=== PATIENT | female | born 1975 | race Two or more races ===

== ENCOUNTER 2020-05-23 14:42 | Inpatient (IN) | payer OTHER ==
--- NOTE | 2020-05-23 14:57 | PDOC ---
Rapid Medical Evaluation Time Seen by Provider: 05/23/20 14:52 Medical Evaluation: Allergies Allergy/AdvReac Type Severity Reaction Status Date / Time pollen extracts Allergy Verified 05/06/20 20:27 05/23/20 14:52 CC: left leg pain with heaviness, s/p fibroid sx 2 weeks ago, no sob, states left leg mild swelling Exam: tachy, - homans sign, leg slightly darker and larger than right. incision intact Plan: labs, duplex Discharge Disposition - Diagnosis Left leg pain - Referrals - Patient Instructions - Post Discharge Activity
--- OUTSIDE RECORDS SUMMARY | 2020-05-23 15:12 | XMS ---
:1975 Author Organization [facility] Support Name Relationship Address Phone UE, UNEMPLOYED Unavailable Unavailable Unavailable UE Unavailable Unavailable Unavailable [employer] Unavailable [address] [place] [address] CLEMENTE, THOR PARTNER [address] [place] [address] CLEMENTE, THOR Other [address] [place] [address] Re-disclosure Warning The records that you are about to access may contain information from federally- assisted alcohol or drug abuse programs. If such information is present, then the following federally mandated warning applies: This information has been disclosed to you from records protected by federal confidentiality rules (42 CFR part 2). The federal rules prohibit you from making any further disclosure of this information unless further disclosure is expressly permitted by the written consent of the person to whom it pertains or as otherwise permitted by 42 CFR part 2. A general authorization for the release of medical or other information is NOT sufficient for this purpose. The Federal rules restrict any use of the information to criminally investigate or prosecute any alcohol or drug abuse patient.The records that you are about to access may contain highly sensitive health information, the redisclosure of which is protected by Article 27-F of the [facility] Public Health law. If you continue you may haveaccess to information: Regarding HIV / AIDS; Provided by facilities licensed or operated by the [facility] Office of Mental Health; or Provided by the [facility] Office for People With Developmental Disabilities. If such information is present, then the following [facility] mandated warning applies: This information has been disclosed to you from confidential records which are protected by state law. State law prohibits you from making any further disclosure of this information without the specific written consent of the person to whom it pertains, or as otherwise permitted by law. Any unauthorized further disclosure in violation of state law may result in a fine or shelter sentence or both. A general authorization for the release of medical or other information is NOT sufficient authorization for further disclosure. Insurance Providers Payer name Policy type Policy ID Covered Covered constitution party's Policy P [place] / Coverage constitution party ID relationship to Romo Inf ormation type romo [facility] [id number] MEDICAID COMM PLAN Results ID Date Data Source [id number] 05/05/2020 09:02:00 AM EDT [facility] Name Value Range Interpretation Description Data Sup porting Code Source(s) Document(s ) SARS [facility] coronavirus 2 RNA This lab was ordered by [facility] and reported by [facility]. Procedure
--- NOTE | 2020-05-23 16:47 | PDOC ---
History of Present Illness - General Chief Complaint: Pain Stated Complaint: LT LEG PAIN Time Seen by Provider: 05/23/20 14:52 - History of Present Illness Initial Comments: 05/23/20 19:09 44yo F presents w/ 2days LLE swelling, pain, and hyperpigmentation s/p myomectomy 3wks ago. This started yesterday and encompasses the whole LLE. The point of maximal pain is the L inguinal region just medial to the ASIS. She states the pain is worse with movement but there is a baseline discomfort. She also states that it is swollen and darker than the Right leg. She denies any respiratory symptoms - no cough, SOB, lightheadedness, chest pain, or back pain. 05/23/20 20:27 Past History - Medical History Allergies/Adverse Reactions: Allergies Allergy/AdvReac Type Severity Reaction Status Date / Time pollen extracts Allergy Verified 05/23/20 14:59 Home Medications: Ambulatory Orders NK [No Known Home Medication] 05/23/20 Anemia: Yes COPD: No - Reproductive History Is Patient Now?: No - Psycho-Social/Smoking History Smoking History: Never smoked Review of Systems - Review of Systems Able to Perform ROS?: Yes Is the patient limited Sierra Leonean proficient: Yes Constitutional: No: Symptoms Reported, Chills, Diaphoresis, Fever HEENTM: No: Recent change in vision, Tinnitus Respiratory: No: Symptoms reported, Cough, Orthopnea, Shortness of Breath, SOB with Exertion, SOB at Rest, Productive cough, Hemoptysis Cardiac (ROS): No: Chest Pain, Lightheadedness, Palpitations ABD/GI: No: Constipated, Diarrhea, Nausea, Vomiting : No: Burning, Dysuria, Discharge, Frequency, Flank Pain, Hematuria, Incontinence, Pain, Lesions Musculoskeletal: Yes: Muscle Pain Integumentary: Yes: Other (darkening of the left leg) Neurological: No: Symptoms reported Endocrine: No: Symptoms Reported Hematologic/Lymphatic: No: Symptoms Reported All Other Systems: Reviewed and Negative *Physical Exam - Vital Signs Last Vital Signs Temp Pulse Resp BP Pulse Ox 100 H 18 95/64 100 05/23/20 14:57 05/23/20 14:57 05/23/20 14:57 05/23/20 14:57 - Physical Exam General Appearance: Yes: Nourished, Appropriately Dressed, Apparent Distress (reports pain in the LLE) HEENT: positive: EOMI, DEVEN, Normal ENT Inspection, Normal Voice Neck: positive: Supple. negative: Tender Respiratory/Chest: positive: Lungs Clear, Normal Breath Sounds. negative: Chest Tender, Respiratory Distress, Accessory Muscle Use, Labored Respiration, Rapid RR Cardiovascular: positive: Regular Rhythm, Tachycardia Gastrointestinal/Abdominal: positive: Normal Bowel Sounds, Flat, Soft, Other (well healing surgical scar. no erythema, drainage, or induration). negative: Tender Musculoskeletal: positive: Decreased Range of Motion (LLE is painful to move). negative: CVA Tenderness (R), CVA Tenderness (L) Extremity: positive: Normal Capillary Refill. negative: Normal Inspection (LLE is slightly darker and colder than RLE. Neither is cold, but the RLE is warmer.) Integumentary: positive: Normal Color (LLE is slightly hyperpigmented compared to the RLE), Dry, Warm. negative: Cyanotic, Mottled Neurologic: positive: Fully Oriented, Alert, Normal Response, Motor Strength 11/23 ED Treatment Course - LABORATORY CBC & Chemistry Diagram: 05/25/20 05:29 05/25/20 05:29 Discharge - Discharge Information Problems reviewed: Yes Clinical Impression/Diagnosis: Left leg pain DVT (deep venous thrombosis) Qualifiers: DVT location: lower extremity Affected thrombotic vein of extremity: femoral Chronicity: acute Laterality: left Qualified Code(s): I82.412 - Acute embolism and thrombosis of left femoral vein Condition: Fair - Admission Yes - Follow up/Referral - Patient Discharge Instructions - Post Discharge Activity
[2020-05-23 17:10] LABS: BASO % 0.6 % (0-2.0); EOS % 1.9 % (0-4.5); HEMATOCRIT 35.5 % (32.4-45.2); HEMOGLOBIN 11.3 GM/dL (10.7-15.3); LYMPH % 18.2 % (8-40); MCH 26.9 pg (25.7-33.7); MCHC 31.9 g/dl (32.0-36.0); MEAN CELL VOLUME 84.4 fl (80-96); MONO % 7.4 % (3.8-10.2); NEUT % 71.9 % (42.8-82.8); PLATELET COUNT 207 K/MM3 (134-434); RDW 15.3 % (11.6-15.6); WHITE BLOOD COUNT 9.4 K/mm3 (4.0-10.0)
[2020-05-23 17:18] LABS: INR 1.15 (0.83-1.09); PROTHROMBIN TIME (PATIENT) 13.8 SEC (9.7-13.0)
[2020-05-23 17:20] LABS: ACTIVATED PTT 30.4 SECONDS (25.2-36.5)
[2020-05-23 17:34] LABS: EPI CELLS 17 /uL (0-25.1); HYALINE CASTS 2 /uL (0-3.1); PH,URINE 5.5 (5.0-8.0); URINE APPEARANCE CLOUDY; URINE BACTERIA >9,000 /uL (0-1359); URINE BILIRUBIN NEGATIVE (NEGATIVE); URINE COLOR YELLOW; URINE GLUCOSE (UA) NEGATIVE (NEGATIVE); URINE KETONE NEGATIVE (NEGATIVE); URINE LEUK ESTERASE NEGATIVE (NEGATIVE); URINE NITRITE POSITIVE (NEGATIVE); URINE PROTEIN NEGATIVE (NEGATIVE); URINE RBC 7 /uL (0-23.9); URINE UROBILINOGEN 0.2 mg/dL (0.2-1.0); URINE WBC 24 /uL (0-25.8)
[2020-05-23 17:37] LABS: HCG,QUALITATIVE URINE Negative
[2020-05-23 17:37] LABS: CHLORIDE 102 mmol/L (98-107); SODIUM 129 mmol/L (136-145)
[2020-05-23 17:40] LABS: ALBUMIN 3.2 g/dl (3.4-5.0); CO2 26 mmol/L (21-32); GLUCOSE,RANDOM 75 mg/dL (74-106)
--- NOTE | 2020-05-23 17:43 | PDOC ---
Documentation entered by Mildred Lackey SCRIBE, acting as scribe for David Dinero MD. David Dinero MD: This documentation has been prepared by the kristaibeDarya Xhesika, SCRIBE, under my direction and personally reviewed by me in its entirety. I confirm that the documentation accurately reflects all work, treatment, procedures, and medical decision making performed by me. Attending Attestation - Resident Resident Name: John Navarrete - ED Attending Attestation I have performed the following: I have examined & evaluated the patient, The case was reviewed & discussed with the resident, I agree w/resident's findings & plan, Exceptions are as noted - HPI HPI: 05/23/20 15:38 44y/o M with a pmh of who presents to the ED for sudden onset left leg pain, swelling and heaviness since yesterday. Pt states she had a open abdominal myomectomy here at [facility] 3 weeks ago. She states she felt fine on saturday, woke up with pain in her L leg. Denies any cp, sob, cough, hemoptysis, urrutia. No prior family or personal history DVT/PE in the past. Allergies: Pollen Extracts PCP: Wen Erickson - Physicial Exam PE: 05/23/20 17:31 Physicial Exam: GENERAL: The patient is awake, alert, and fully oriented, Nontoxic - in no acute distress. HEAD: Normocephalic, atraumatic. EYES: extraocular movements intact, sclera anicteric, conjunctiva clear. ENT: Normal voice, Moist mucous membranes. NECK: Normal range of motion, supple LUNGS: Breath sounds equal, clear to auscultation bilaterally. No wheezes, no rhonchi, no rales. HEART: Regular rate and rhythm, normal S1 and S2 without murmur, rub or gallop. ABDOMEN: Soft, nontender, No guarding, no rebound. No CVA tenderness EXTREMITIES: Normal range of motion, significant edema of LLE to thigh NEUROLOGICAL: No facial assymetry, Normal speech, PSYCH: Normal mood, normal affect. SKIN: Warm, Dry, normal turgor, - Medical Decision Making 05/23/20 17:38 extensive DVT on LLE will start ac will dw vascular regarding disposition 05/23/20 19:38 pt admitted for further mangaement leg remains swollen without and coolness. pts pain is moderate, no paleness/hyeremia. dp pulses palpable Discharge - Discharge Information Problems reviewed: Yes Clinical Impression/Diagnosis: Left leg pain DVT (deep venous thrombosis) Qualifiers: DVT location: lower extremity Affected thrombotic vein of extremity: femoral Chronicity: acute Laterality: left Qualified Code(s): I82.412 - Acute embolism and thrombosis of left femoral vein Condition: Fair - Follow up/Referral - Patient Discharge Instructions - Post Discharge Activity
[2020-05-23 17:44] LABS: CREATININE 0.7 mg/dL (0.55-1.3); TOT PROT 8.8 g/dl (6.4-8.2)
[2020-05-23 17:45] LABS: ALK PHOS 65 U/L (45-117)
[2020-05-23 17:49] LABS: ANION GAP 1 MMOL/L (8-16); SGOT/AST 88 U/L (15-37); SGPT/ALT 20 U/L (13-61)
[2020-05-23 17:50] LABS: BILIRUBIN,TOTAL < 0.1 mg/dL (0.2-1)
[2020-05-23 17:51] LABS: POTASSIUM > 10.0 mmol/L (3.5-5.1)
[2020-05-23] MEDS ORDERED: RIVAROXABAN 15 MG TABLET PO ONE (18:05)
[2020-05-23] MEDS ORDERED: LACTATED RINGERS SOLUTION 1000 ML INFUS.BAG IV ONE (18:14)
[2020-05-23] MEDS ORDERED: ACETAMINOPHEN 1000 MG/100 ML VIAL (NON FORMULARY) IVPB ONE (18:26)
[2020-05-23] MEDS ORDERED: ACETAMINOPHEN INJECTION 100 ML IVPB ONE (18:31)
[2020-05-23 19:32] LABS: CHLORIDE 106 mmol/L (98-107)
[2020-05-23 19:34] LABS: CALCIUM 8.8 mg/dL (8.5-10.1)
[2020-05-23 19:35] LABS: ALBUMIN 3.6 g/dl (3.4-5.0); BLOOD UREA NITROGEN 11.8 mg/dL (7-18); CO2 26 mmol/L (21-32); GLUCOSE,RANDOM 80 mg/dL (74-106)
[2020-05-23 19:38] LABS: CREATININE 0.6 mg/dL (0.55-1.3); SGOT/AST 13 U/L (15-37); SGPT/ALT 14 U/L (13-61)
[2020-05-23 19:40] LABS: BILIRUBIN,TOTAL 0.5 mg/dL (0.2-1); TOT PROT 7.5 g/dl (6.4-8.2)
[2020-05-23 19:41] LABS: ALK PHOS 67 U/L (45-117)
--- OUTSIDE RECORDS SUMMARY | 2020-05-23 19:52 | XMS ---
:1975 Author Organization [facility] Support Name Relationship Address Phone UE, UNEMPLOYED Unavailable Unavailable Unavailable UE Unavailable Unavailable Unavailable [employer] Unavailable [address] [place] [address] CLEMENTE, THOR PARTNER [address] [place] [address] CLEMENTE, THOR Other [address] [place] [place] [address] Re-disclosure Warning The records that you are [...] is protected by Article 27-F of the [facility] Public Health law. If you continue you may haveaccess to information: Regarding HIV / AIDS; Provided by facilities licensed or operated by the [facility] Office of Mental Health; or Provided by the [facility] Office for People With Developmental Disabilities. If such information is present, then the following [facility] mandated warning applies: This information has been [...] law may result in a fine or senior care sentence or both. A general authorization for the release of medical or other information is NOT sufficient authorization for further disclosure. Insurance Providers Payer name Policy type Policy ID Covered Covered alliance party's Policy P [place] / Coverage alliance party ID relationship to [place] Inf ormation type navarro [facility] [id number] MEDICAID COMM PLAN Results ID Date Data Source [id number] 05/05/2020 09:02:00 AM EDT [facility] Name Value Range Interpretation Description Data Sup porting Code Source(s) Document(s ) SARS [facility] coronavirus 2 RNA This lab was ordered by [facility] and reported by [facility]. Procedure
[2020-05-23 19:59] LABS: ANION GAP 8 MMOL/L (8-16); SODIUM 140 mmol/L (136-145)
[2020-05-23] MEDS ORDERED: ATORVASTATIN CA 10 MG TABLET (FP) PO ONE (20:30)
[2020-05-23] MEDS ORDERED: morphine SULFATE IMMEDIATE RELEASE 30 MG TAB PO PRN (21:26)
[2020-05-23] MEDS ORDERED: HEPARIN NA (PORCINE) 5,000 UNITS/ML 1ML VIAL IVPUSH PRN ×2 (21:32)
[2020-05-23] MEDS ORDERED: ACETAMINOPHEN 325 MG TABLET (FP) PO SCH (21:45)
--- NOTE | 2020-05-23 21:54 | HP ---
<Drake Escalante - Last Filed: 05/24/20 05:55> CHIEF COMPLAINT: L leg pain and swelling PCP: Dr. Walton HISTORY OF PRESENT ILLNESS: Pt is a 44 yo F with PMH of fibroids (s/p open abdominal myomectomy on 05/09/2020) presenting with L leg pain with associated mild swelling, heaviness, and mild discoloration x 2 days (since Saturday morning). Pt reports the pain has been severe 10/10 at it's worst, dull, and constant pain. Pt reports she cannot recall anything that makes the pain worse. Pt had only minimal relief with Advil at home (decreased to 8-9/10). Pt reports that she has the most pain on L mid upper thigh (almost at the L inguinal area); pt reports mild erythema in this area earlier in the day but it is no longer present. Pt's left lower extremities is discolored but does not have significant blue/purple discoloration. Pt denies hx of clots in the past, current OCP use, periods of extended sitting/traveling (reports that she has been walking a lot since the surgery), hx of miscarriages/ loss, past DVT/PE, or fam hx of clots/easy bleeding. Pt denies any changes in sensation in her legs, numbness/tingling, changes in ability to move leg, CP, dyspnea at rest or on exertion, cough, hemoptysis, hematuria, dysuria, urinary frequency, or urgency. Pt also denies na usea/vomiting, constipation, diarrhea, dizziness/lightheadedness, or fevers/chills. 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 Smoking: denies Alcohol: denies Drugs: denies Allergies pollen extracts Allergy (Verified 05/23/20 14:59) HOME MEDICATIONS: Home Medications Medication Instructions Recorded NK [No Known Home Medication] 05/23/20 REVIEW OF SYSTEMS as per HPI PHYSICAL EXAMINATION Vital Signs - 24 hr 05/23/20 05/23/20 05/23/20 14:57 18:08 20:37 Temperature 98.2 F 98.8 F Pulse Rate 100 H Pulse Rate [ 80 81 Left Radial] Respiratory 18 18 18 Rate Blood Pressure 95/64 Blood Pressure 109/69 114/73 [Left Arm] O2 Sat by Pulse 100 98 100 Oximetry (%) GENERAL: Awake, alert, and fully oriented, in no acute distress. HEAD: Normal with no signs of trauma. EYES: Pupils equal, round and reactive to light, extraocular movements intact, sclera anicteric, conjunctiva clear. EARS, NOSE, THROAT: Ears normal, nares patent, oropharynx clear without exudates. Moist mucous membranes. NECK: Normal range of motion, supple without lymphadenopathy LUNGS: Breath sounds equal, clear to auscultation bilaterally. No wheezes, and no crackles. No accessory muscle use. HEART: Regular rate and rhythm, normal S1 and S2 without murmur, rub or gallop. ABDOMEN: Soft, nontender, not distended, normoactive bowel sounds; old vertical scar from C-sections; transverse scar over suprapubic area - surgical site from recent myomectomy is clean, dry and intact; no suprapubic tenderness MUSCULOSKELETAL: Normal range of motion at all joints. No bony deformities or tenderness. UPPER EXTREMITIES: 2+ pulses, warm, well-perfused. No cyanosis. No clubbing. No peripheral edema. LOWER EXTREMITIES: 2+ pulses, warm, well-perfused bilaterally at time of evaluation. LLE with increased edema up to thigh, mild discoloration as compared to RLE, pt with calf tenderness, Anita sign + NEUROLOGICAL: Cranial nerves II-XII intact. Normal speech. Sensation to light tough intact. Moving all extremities equally and spontaneously PSYCHIATRIC: Cooperative. Good eye contact. Appropriate mood and affect. SKIN: Warm, dry, normal turgor, no rashes or lesions noted, normal capillary refill. Laboratory Results - last 24 hr 05/23/20 05/23/20 05/23/20 15:22 15:22 15:22 WBC 9.4 RBC 4.20 Hgb 11.3 Hct 35.5 MCV 84.4 MCH 26.9 MCHC 31.9 L RDW 15.3 Plt Count 207 D MPV 10.0 Absolute Neuts (auto) 6.7 Neutrophils % 71.9 Lymphocytes % 18.2 Monocytes % 7.4 Eosinophils % 1.9 Basophils % 0.6 Nucleated RBC % 0 PT with INR 13.80 H INR 1.15 H PTT (Actin FS) 30.4 Sodium 129 L Potassium > 10.0 H* Chloride 102 Carbon Dioxide 26 Anion Gap 1 L BUN 13.0 Creatinine 0.7 Est GFR (CKD-EPI)AfAm 123.86 Est GFR (CKD-EPI)NonAf 106.87 Random Glucose 75 Calcium 9.0 Total Bilirubin < 0.1 L AST 88 H ALT 20 Alkaline Phosphatase 65 Troponin I Total Protein 8.8 H Albumin 3.2 L TSH Urine Color Urine Appearance Urine pH Ur Specific [place] Urine Protein Urine Glucose (UA) Urine Ketones Urine Blood Urine Nitrite Urine Bilirubin Urine Urobilinogen Ur Leukocyte Esterase Urine WBC (Auto) Urine RBC (Auto) Urine Casts (Auto) U Epithel Cells (Auto) Urine Bacteria (Auto) Urine HCG, Qual 05/23/20 05/23/20 15:36 17:55 WBC RBC Hgb Hct MCV MCH MCHC RDW Plt Count MPV Absolute Neuts (auto) Neutrophils % Lymphocytes % Monocytes % Eosinophils % Basophils % Nucleated RBC % PT with INR INR PTT (Actin FS) Sodium 140 Potassium 4.0 Chloride 106 Carbon Dioxide 26 Anion Gap 8 BUN 11.8 Creatinine 0.6 Est GFR (CKD-EPI)AfAm 130.30 Est GFR (CKD-EPI)NonAf 112.42 Random Glucose 80 Calcium 8.8 Total Bilirubin 0.5 AST 13 L ALT 14 Alkaline Phosphatase 67 Troponin I < 0.02 Total Protein 7.5 Albumin 3.6 TSH 0.89 Urine Color Yellow Urine Appearance Cloudy Urine pH 5.5 Ur Specific [place] 1.031 Urine Protein Negative Urine Glucose (UA) Negative Urine Ketones Negative Urine Blood 3+ H Urine Nitrite Positive H Urine Bilirubin Negative Urine Urobilinogen 0.2 Ur Leukocyte Esterase Negative Urine WBC (Auto) 24 Urine RBC (Auto) 7 Urine Casts (Auto) 2 U Epithel Cells (Auto) 17 Urine Bacteria (Auto) >9,000 Urine HCG, Qual Negative LLE US/Duplex Read: There is extensive deep venous thrombosis within the common, deep, and superficial femoral veins. No flow is identified within these vessels which are noncompressible, additional sign of DVT. This is also identified within the proximal greater saphenous vein. The more distal greater saphenous vein is patent. Non-inclusive thrombus is seen within the popliteal and posterior tibial veins where some flow is present. Impression: Extensive DVT within the LLE as described above. ASSESSMENT/PLAN: Pt is a 44 yo F with PMH of fibroids (s/p open abdominal myomectomy on 05/09/2020) presenting with L leg pain, swelling, heaviness, and mild discoloration x 2 days (since Saturday morning); found to have extensive deep venous thrombosis of LLE (common, deep, and superficial femoral veins). Pt being admitted for further evaluation and management of the extensive LLE DVT. #LLE DVT (common, deep, and superficial femoral veins) Duplex US of LLE as reported above Xarelto given in ED VS stable currently Will continue to monitor for any changes in VS; changes in LLE exam; development of CP/SOB -Case discussed with Vascular Surgery by ED d/t extensiveness of DVT; Vascular surgery consulted and will evaluate patient tomorrow; appreciate recs -will start heparin drip -PO tylenol scheduled; PO morphine prn for breakthrough pain -neurochecks for changes in LLE exam -PT consulted for early ambulation #Asymptomatic Bacteruria/Pyuria UA with LE neg, nitrites pos, WBC 24, bacteria >9000, 3+ blood, 17 epith Pt not endorsing any dysuria, frequency, or urgency LMP 05/20/2020 (recent period) -will repeat UA; f/u UCx -no need to treat right now; monitor for development of symptoms -can reassess after repeat UA #FEN -F - fluids given in ED -E - monitor lytes; replete prn -N - NPO for now #DVT Ppx -heparin drip #Dispo -admit to med-surg Family Medical History Family History: As Documented Visit type - Emergency Visit Emergency Visit: Yes ED Registration Date: 05/23/20 Care time: The patient presented to the Emergency Department on the above date and was hospitalized for further evaluation of their emergent condition. - New Patient This patient is new to me today: Yes Date on this admission: 05/24/20 - Critical Care Critical Care patient: No ATTENDING PHYSICIAN STATEMENT I saw and evaluated the patient. I reviewed the resident's note and discussed the case with the resident. I agree with the resident's findings and plan as documented. SUBJECTIVE: OBJECTIVE: ASSESSMENT AND PLAN: <Fco Daniel - Last Filed: 06/03/20 20:51> CHIEF COMPLAINT: PCP: HISTORY OF PRESENT ILLNESS: ER course was notable for: (1) (2) (3) Recent Travel: PAST MEDICAL HISTORY: PAST SURGICAL HISTORY: Social History: Smoking: Alcohol: Drugs: Allergies pollen extracts Allergy (Verified 05/23/20 14:59) HOME MEDICATIONS: Home Medications Medication Instructions Recorded Acetaminophen [Tylenol .Regular 650 mg PO Q6HPO tablet 05/26/20 Strength -] Apixaban [Eliquis -] 10 mg PO BID@0600,1800 #66 tablet 05/26/20 Docusate Sodium [Colace -] 100 mg PO BID PRN capsule 05/26/20 REVIEW OF SYSTEMS CONSTITUTIONAL: Absent: fever, chills, diaphoresis, generalized weakness, malaise, loss of appetite, weight change HEENT: Absent: rhinorrhea, nasal congestion, throat pain, throat swelling, difficulty swallowing, mouth swelling, ear pain, eye pain, visual changes CARDIOVASCULAR: Absent: chest pain, syncope, palpitations, irregular heart rate, lightheadedness, peripheral edema RESPIRATORY: Absent: cough, shortness of breath, dyspnea with exertion, orthopnea, wheezing, stridor, hemoptysis GASTROINTESTINAL: Absent: abdominal pain, abdominal distension, nausea, vomiting, diarrhea, constipation, melena, hematochezia GENITOURINARY: Absent: dysuria, frequency, urgency, hesitancy, hematuria, flank pain, genital pain MUSCULOSKELETAL: Absent: myalgia, arthralgia, joint swelling, back pain, neck pain SKIN: Absent: rash, itching, pallor HEMATOLOGIC/IMMUNOLOGIC: Absent: easy bleeding, easy bruising, lymphadenopathy, frequent infections ENDOCRINE: Absent: unexplained weight gain, unexplained weight loss, heat intolerance, cold intolerance NEUROLOGIC: Absent: headache, focal weakness or paresthesias, dizziness, unsteady gait, seizure, mental status changes, bladder or bowel incontinence PSYCHIATRIC: Absent: anxiety, depression, suicidal or homicidal ideation, hallucinations. PHYSICAL EXAMINATION GENERAL: Awake, alert, and fully oriented, in no acute distress. HEAD: Normal with no signs of trauma. EYES: Pupils equal, round and reactive to light, extraocular movements intact, sclera anicteric, conjunctiva clear. No lid lag. EARS, NOSE, THROAT: Ears normal, nares patent, oropharynx clear without exudates. Moist mucous membranes. NECK: Normal range of motion, supple without lymphadenopathy, JVD, or masses. LUNGS: Breath sounds equal, clear to auscultation bilaterally. No wheezes, and no crackles. No accessory muscle use. HEART: Regular rate and rhythm, normal S1 and S2 without murmur, rub or gallop. ABDOMEN: Soft, nontender, not distended, normoactive bowel sounds, no guarding, no rebound, no masses. No hepatomegaly or splenomegaly. MUSCULOSKELETAL: Normal range of motion at all joints. No bony deformities or tenderness. No CVA tenderness. UPPER EXTREMITIES: 2+ pulses, warm, well-perfused. No cyanosis. No clubbing. No peripheral edema. LOWER EXTREMITIES: 2+ pulses, warm, well-perfused. No calf tenderness. No peripheral edema. NEUROLOGICAL: Cranial nerves II-XII intact. Normal speech. Normal gait. PSYCHIATRIC: Cooperative. Good eye contact. Appropriate mood and affect. SKIN: Warm, dry, normal turgor, no rashes or lesions noted, normal capillary refill. ASSESSMENT/PLAN: ATTENDING PHYSICIAN STATEMENT I saw and evaluated the patient. I reviewed the resident's note and discussed the case with the resident. I agree with the resident's findings and plan as documented. SUBJECTIVE: OBJECTIVE: ASSESSMENT AND PLAN:
[2020-05-23] MEDS: ACETAMINOPHEN 325 MG TABLET (FP) PO SCH (23:12)
[2020-05-24] MEDS: HEPARIN - 25,000 UNIT in SODIUM CHLORIDE 495 ML IV SCH ×3 (00:02→23:23)
[2020-05-24 00:56] VITALS: BMI 31.2
[2020-05-24] MEDS: ACETAMINOPHEN 325 MG TABLET (FP) PO SCH ×4 (06:11→23:13)
[2020-05-24] MEDS: morphine SULFATE 4 MG/ML VIAL IVPUSH PRN ×2 (06:49→20:51)
[2020-05-24 06:55] LABS: BASO % 0.5 % (0-2.0); HEMATOCRIT 34.2 % (32.4-45.2); LYMPH % 28.9 % (8-40); MCH 27.3 pg (25.7-33.7); MCHC 32.3 g/dl (32.0-36.0); MEAN CELL VOLUME 84.4 fl (80-96); MEAN PLT VOLUME 8.9 fl (7.5-11.1); MONO % 6.7 % (3.8-10.2); NEUT % 61.9 % (42.8-82.8); PLATELET COUNT 223 K/MM3 (134-434); RBC 4.05 M/mm3 (3.60-5.2); RDW 14.7 % (11.6-15.6); WHITE BLOOD COUNT 10.8 K/mm3 (4.0-10.0)
[2020-05-24 07:34] LABS: INR 1.66 (0.83-1.09); PROTHROMBIN TIME (PATIENT) 19.8 SEC (9.7-13.0)
[2020-05-24 08:03] LABS: ACTIVATED PTT 157.8 SECONDS (25.2-36.5)
--- NOTE | 2020-05-24 09:05 | PN ---
Progress Note, Physician History of Present Illness: 44 yo F with PMH of fibroids (s/p open abdominal myomectomy on 05/09/2020) presenting with L leg pain, swelling, heaviness, and mild discoloration x 2 days (since Saturday morning); found to have extensive deep venous thrombosis of LLE (common, deep, and superficial femoral veins). Pt being admitted for further evaluation and management of the extensive LLE DVT. - Current Medication List Current Medications: Active Medications Acetaminophen (Tylenol -) 650 mg PO Q6HPO TOBY Last Admin: 05/24/20 06:11 Dose: 650 mg Documented by: Heparin Sodium (Porcine) (Heparin -) 1,000 unit IVPUSH PRN PRN PRN Reason: Heparin Heparin Sodium (Porcine) (Heparin -) 5,000 unit IVPUSH PRN PRN PRN Reason: Heparin Last Admin: 05/23/20 23:22 Dose: 5,000 unit Documented by: Heparin Sodium (Porcine) 25, (000 unit/ Sodium Chloride) 500 mls @ 20 mls/hr IV TITR TOBY; Protocol Last Admin: 05/24/20 00:02 Dose: 1,150 unit/hr, 23 mls/hr Documented by: Morphine Sulfate (Morphine Sulfate) 4 mg IVPUSH Q4H PRN PRN Reason: PAIN LEVEL 7 - 10 Last Admin: 05/24/20 06:49 Dose: 4 mg Documented by: - Objective Vital Signs: Vital Signs Temperature 98.5 F 05/24/20 05:00 Pulse Rate 70 05/24/20 05:00 Respiratory Rate 18 05/24/20 06:00 Blood Pressure 105/71 05/24/20 05:00 O2 Sat by Pulse Oximetry (%) 100 05/24/20 06:00 Cardiovascular: Yes: Regular Rate and Rhythm Respiratory: Yes: Regular, CTA Bilaterally, Poor Air Entry Gastrointestinal: Yes: Soft. No: Tenderness Labs: CBC, BMP 05/24/20 06:37 05/24/20 06:37 INR, PTT INR 1.66 (0.83-1.09) H 05/24/20 06:37 Problem List - Problems (1) DVT (deep venous thrombosis) Assessment/Plan: -(common, deep, and superficial femoral veins) Xarelto given in ED VS stable currently Vascular Surgery -Continue with heparin drip -PO tylenol scheduled; PO morphine prn for breakthrough pain -neurochecks for changes in LLE exam -Hem consult Code(s): I82.409 - ACUTE EMBOLISM AND THOMBOS UNSP DEEP VN UNSP LOWER EXTREMITY Qualifiers: DVT location: lower extremity Affected thrombotic vein of extremity: femoral Chronicity: acute Laterality: left Qualified Code(s): I82.412 - Acute embolism and thrombosis of left femoral vein (2) S/P myomectomy Assessment/Plan: principal consulting engineer follow up Code(s): Z98.890 - OTHER SPECIFIED POSTPROCEDURAL STATES
--- NOTE | 2020-05-24 09:30 | CONSULT ---
- Consultation REQUESTING PROVIDER: CONSULT REQUEST: We have been asked to surgically evaluate this patient for (specify). LLE DVT within common, deep superifical femoral veins, promixal saphenous vein Hospitalist:Wen Walton HISTORY OF PRESENT ILLNESS: 44yo hx of fibroids s/p open abdominal myomectomy on 05/09/20 presents with intermittent L leg pain and swelling that start Saturday morning (05/22/20) and woke patient from sleep and progressively worsened throughout the day. Pt reports heaviness, increase in size of LLE, discoloration, not relieved by ibuprofen. Pt states had 2 C-sections, uncomplicated , no hx of miscarriage/ pregnancies, denies hx of DVT/PE, denies: SOB, hemoptysis, no numbness/tingling, no decrease in sensation, CP, hx of easy bruising and bleeding, denies:CHAVIS, hemopytsis, denies blood thinner use. 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 Denies: FH of clotting disorders Pt states does ambulate to the bathroom, discoloration improved PMH/PSH: as per HPI SH: denies smoking or alchol use FH: denies hx of blood clots or clotting disorder Home Meds: denies Allergies: NKDA ROS: all pertinent positives and negatives as per HPI. All other systems reviewed and negative. PHYSICAL EXAM: GENERAL: Awake, alert, and fully oriented, in no acute distress. HEAD: Normal with no signs of trauma. EYES: PERRL, sclera anicteric, conjunctiva clear. NECK: Normal ROM, supple without lymphadenopathy, JVD, or masses. LUNGS: unlabored breathing on RA, satting well ABDOMEN: Soft, nontender, not distended, no guarding, no rebound, no masses. incisions well healed with no signs of infection MUSCULOSKELETAL: Normal ROM at all joints. No bony deformities or tenderness. No CVA tenderness. UPPER EXTREMITIES: 2+ pulses, warm, well-perfused. No cyanosis. Cap refill <2 seconds. No peripheral edema. LLE: LLE>RLE, swollen, no discoloration, no palpable pop pulses not appreciated due to swelling, palpable DP pulses/fem, +Anita sign, tenderness in R thigh, no changes in temperature RLE: warm, palpable DP/Pop/fem, +ROM, compartments soft/NT/nonedematous Vital Signs Temperature 98.3 F 05/24/20 09:00 Pulse Rate 83 05/24/20 09:00 Respiratory Rate 18 05/24/20 09:00 Blood Pressure 94/64 05/24/20 09:00 O2 Sat by Pulse Oximetry (%) 100 05/24/20 09:00 Lab Results WBC 10.8 K/mm3 (4.0-10.0) H 05/24/20 06:37 RBC 4.05 M/mm3 (3.60-5.2) 05/24/20 06:37 Hgb 11.0 GM/dL (10.7-15.3) 05/24/20 06:37 Hct 34.2 % (32.4-45.2) 05/24/20 06:37 MCV 84.4 fl (80-96) 05/24/20 06:37 MCHC 32.3 g/dl (32.0-36.0) 05/24/20 06:37 RDW 14.7 % (11.6-15.6) 05/24/20 06:37 Plt Count 223 K/MM3 (134-434) 05/24/20 06:37 INR 1.66 (0.83-1.09) H 05/24/20 06:37 Sodium Cancelled 05/24/20 06:37 Potassium Cancelled 05/24/20 06:37 Chloride Cancelled 05/24/20 06:37 Carbon Dioxide Cancelled 05/24/20 06:37 Anion Gap Cancelled 05/24/20 06:37 BUN Cancelled 05/24/20 06:37 Creatinine Cancelled 05/24/20 06:37 Random Glucose Cancelled 05/24/20 06:37 Calcium Cancelled 05/24/20 06:37 Imaging: US Duplex Ext DVT within the common, deep, and superficial femoral veins. No flow is identified within these vessels which are noncompressible, additional sign of D VT. This is also identified within the proximal greater saphenous vein is patent. Nonocclusive thrombus seen within popliteal and posterior tibial veins where some flow is present Current Medications Generic Name Dose Route Start Last Admin Trade Name Freq PRN Reason Stop Dose Admin Acetaminophen 650 mg 05/24/20 00:00 05/24/20 06:11 Tylenol - PO 650 mg Q6HPO TOBY Administration Heparin Sodium (Porcine) 1,000 unit 05/23/20 21:32 Heparin - IVPUSH PRN PRN Heparin Heparin Sodium (Porcine) 5,000 unit 05/23/20 21:32 05/23/20 23:22 Heparin - IVPUSH 5,000 unit PRN PRN Administration Heparin Heparin Sodium (Porcine) 25, 500 mls @ 20 mls/hr 05/23/20 21:30 05/24/20 00:02 000 unit/ Sodium Chloride IV 1,150 unit/hr TITR TOBY 23 mls/hr Administration Protocol 1,000 UNIT/HR Morphine Sulfate 4 mg 05/24/20 05:46 05/24/20 06:49 Morphine Sulfate IVPUSH 4 mg Q4H PRN Administration PAIN LEVEL 7 - 10 A&P: 44yo hx of fibroids s/p open abdominal myomectomy on 05/09/20 presents with intermittent L leg pain and swelling that start Saturday morning (05/22/20). Found to have a Ext DVT within the common, deep, and superficial femoral veins, proximal greater saphenous vein. No flow is identified within these vessels which are noncompressible IR consult for possible thrombolysis: Keep NPO for possible intervention heme/onc consult continue hep gtt pain control PRN d/w Dr. Blanton
--- NOTE | 2020-05-24 10:32 | EKG ---
Test Reason : Blood Pressure : / mmHG Vent. Rate : 079 BPM Atrial Rate : 079 BPM P-R Int : 138 ms QRS Dur : 086 ms QT Int : 368 ms P-R-T Axes : 064 055 040 degrees QTc Int : 421 ms NORMAL SINUS RHYTHM WITH SINUS ARRHYTHMIA NORMAL ECG NO PREVIOUS ECGS AVAILABLE Confirmed by MD RAO, LITO ([id number]) on 05/24/2020 10:32:14 AM Referred By: Confirmed By:LITO YEH MD
--- NOTE | 2020-05-24 10:56 | CONSULT ---
Consultation: (Consult for Hematology-Oncology) REQUESTING PROVIDER: Dr. Key CONSULT REQUEST: We have been asked to medically evaluate this patient for multiple DVTs. HISTORY OF PRESENT ILLNESS: 44F w/ pmhx of fibroids (s/p open abdominal myomectomy on 05/09/2020), iron deficiency anemia presents with L leg pain with associated mild swelling, heaviness, and mild discoloration x 2 days (since Saturday morning) found to have multiple DVTs. Hematology consulted for evaluation of DVTs. States she took Advil with minimal symptomatic relief. Pain mostly on L mid upper thigh (almost at the L inguinal area) with mild erythema. +Swelling of the L thigh compared to the R. Limited ROM in the LLE due to pain. Denies hx of blood clots in the past, current OCP use, periods of extended sitting/traveling (reports that she has been walking a lot since the surgery), hx of miscarriages/ loss, past DVT/PE, or fam hx of clots/easy bleeding. Denies CP, dyspnea at rest or on exertion, cough, hemoptysis, hematuria, dysuria, urinary frequency, or urgency. Pt also denies nausea/vomiting, constipation, diarrhea, dizziness/lightheadedness, or fevers/chills. PMhx: Fibroids, DINA PSH: Open abd myomectomy (05/09/20), 23 years ago FHx: Denies Social: Denies tobacco, alcohol, rec drug use Meds: Admits to taking a vitamin (? calcium) Denies recent travel REVIEW OF SYSTEMS: As per HPI PHYSICAL EXAMINATION Vital Signs Temperature 98.3 F 05/24/20 09:00 Pulse Rate 83 05/24/20 09:00 Respiratory Rate 18 05/24/20 09:00 Blood Pressure 94/64 05/24/20 09:00 O2 Sat by Pulse Oximetry (%) 100 05/24/20 09:00 GENERAL: AAOx3. NAD. Resting comfortably in bed. HEENT: AT/NC. EOMI. MMM. NECK: Normal range of motion, supple without lymphadenopathy, JVD, or masses. LUNGS: CTA B/L. No wheezes/rales noted. HEART: RRR, normal S1, S2. No murmurs noted. ABDOMEN: Soft, NT/ND. Well-healed vertical surgical scar. Horizontal well-healed pelvic scar from recent surgery noted, no erythema/discoloration/discharge. MUSCULOSKELETAL: Normal range of motion at all joints. No bony deformities or tenderness. No CVA tenderness. EXTREMITIES: +swelling of LLE compared to RLE. Decreased ROM of LLE 2/2 pain. 2+ dorsalis pedis pulses b/l. NEUROLOGICAL: Cranial nerves II-XII intact. Normal speech. SKIN: Warm, dry, normal turgor, no rashes or lesions noted. Laboratory Tests 05/24/20 05/24/20 06:37 06:37 WBC 10.8 H PT with INR 19.80 H INR 1.66 H PTT (Actin FS) 157.8 H Active Medications Acetaminophen (Tylenol -) 650 mg PO Q6HPO TOBY Last Admin: 05/24/20 06:11 Dose: 650 mg Documented by: Heparin Sodium (Porcine) (Heparin -) 1,000 unit IVPUSH PRN PRN PRN Reason: Heparin Heparin Sodium (Porcine) (Heparin -) 5,000 unit IVPUSH PRN PRN PRN Reason: Heparin Last Admin: 05/23/20 23:22 Dose: 5,000 unit Documented by: Heparin Sodium (Porcine) 25, (000 unit/ Sodium Chloride) 500 mls @ 20 mls/hr IV TITR TOBY; Protocol Last Admin: 05/24/20 00:02 Dose: 1,150 unit/hr, 23 mls/hr Documented by: Morphine Sulfate (Morphine Sulfate) 4 mg IVPUSH Q4H PRN PRN Reason: PAIN LEVEL 7 - 10 Last Admin: 05/24/20 06:49 Dose: 4 mg Documented by: ASSESSMENT/PLAN: 44F w/ pmhx of fibroids (s/p open abdominal myomectomy on 05/09/2020) presenting with L leg pain found to have LLE DVT within common, deep superifical femoral veins, promixal saphenous vein. Hematology consulted for provoked DVT. Impression: Multiple DVTs (common, deep superficial fem vein, prox saphenous vein) Hx of Fibroids (s/p myomectomy) -Cont heparin gtt for now. If procedure is warranted, may transition to DOAC (ie. Eliquis) after procedure, otherwise, can transition to DOAC now and continue for at least 3-6 months. Pt will need to follow up with Dr. Montaño/Dilcia as an outpatient upon discharge to assess ongoing need for AC after 3 months as well as to monitor for any bleeding episodes while on AC -IR consulted for possible LLE thrombectomy; NPO for now -PT/early ambulation -Pain control Dispo: We will continue to follow the patient. Thank you for this consultative opportunity. Visit type - Emergency Visit Emergency Visit: Yes ED Registration Date: 05/23/20 Care time: The patient presented to the Emergency Department on the above date and was hospitalized for further evaluation of their emergent condition. - New Patient This patient is new to me today: Yes Date on this admission: 05/24/20 - Critical Care Critical Care patient: No ATTENDING PHYSICIAN STATEMENT I saw and evaluated the patient. I reviewed the resident's note and discussed the case with the resident. I agree with the resident's findings and plan as documented. SUBJECTIVE: OBJECTIVE: ASSESSMENT AND PLAN:
[2020-05-24 11:21] LABS: POTASSIUM 3.9 mmol/L (3.5-5.1)
[2020-05-24 11:23] LABS: CALCIUM 8.6 mg/dL (8.5-10.1)
[2020-05-24 11:24] LABS: ALBUMIN 3.2 g/dl (3.4-5.0); BLOOD UREA NITROGEN 8.5 mg/dL (7-18)
[2020-05-24 11:27] LABS: CREATININE 0.6 mg/dL (0.55-1.3)
[2020-05-24 11:29] LABS: BILIRUBIN,TOTAL 0.8 mg/dL (0.2-1); TOT PROT 7.1 g/dl (6.4-8.2)
--- NOTE | 2020-05-24 15:46 | PN ---
Teaching Attending Note Name of Resident: Emilia Riggins ATTENDING PHYSICIAN STATEMENT I saw and evaluated the patient. I reviewed the resident's note and discussed the case with the resident. I agree with the resident's findings and plan as documented. SUBJECTIVE: Doing well. Reports pain in left leg OBJECTIVE: Last Vital Signs Temp Pulse Resp BP Pulse Ox 98.7 F 74 18 97/60 100 05/24/20 13:21 05/24/20 13:21 05/24/20 13:21 05/24/20 13:21 05/24/20 09:00 General: NAD HEENT: MMM CVS: S1, S2 Lungs: CTAB Abdomen: Soft, NT, ND Neuro: Moves all extremities Extremities: LLE (Thigh) edematous and enlarged ASSESSMENT AND PLAN: 44 y/o lady with recent open abdominal myomectomy on 05/09/2020 for fibroids, presented now with L leg pain found to have LLE DVT within common, deep superifical femoral veins, promximal saphenous vein. Hematology consulted for provoked DVT. Recommend: 1) Heparin drip. Transition to DOAC after 24-48 hrs. Recommend 3 and preferably 6 months of anticoagulation. 2) Awaiting IR input on Thrombectomy. Early ambulation 3) Most likely cause of DVT is recent fibroid myomectomy. 4) Recommend age appropriate cancer screenings with PCP (Mammogram, PAP, Colonoscopy, etc) 5) Given anticoagulation no value on hypercoagulable screening tests except Factor V Leiden and Prothrombin Gene Mutation ([id number]). In the future (off anticoagulation) may consider Protein C, S and antithrombin III tests. Follow up with /Dr. Ha (Outpatient Hematologists) upon discharge. 6) Rest per Dr. Riggins's note. 7) Thank you for this consultation.
[2020-05-24 17:32] LABS: EPI CELLS 35 /uL (0-25.1); HYALINE CASTS 3 /uL (0-3.1); PH,URINE 5.5 (5.0-8.0); URINE APPEARANCE CLOUDY; URINE BACTERIA 5012 /uL (0-1359); URINE BILIRUBIN NEGATIVE (NEGATIVE); URINE COLOR YELLOW; URINE GLUCOSE (UA) NEGATIVE (NEGATIVE); URINE KETONE NEGATIVE (NEGATIVE); URINE LEUK ESTERASE TRACE (NEGATIVE); URINE NITRITE POSITIVE (NEGATIVE); URINE PROTEIN NEGATIVE (NEGATIVE); URINE RBC 3 /uL (0-23.9); URINE UROBILINOGEN 0.2 mg/dL (0.2-1.0); URINE WBC 50 /uL (0-25.8)
--- NOTE | 2020-05-24 19:07 | PN ---
Progress Note (short form) - Note Progress Note: Vascular Surgery Pt seen and examined. Left lower extremity DVT. Leg is better on AC. Leg is soft, not tense, no phlegmasia. Please DC home in am on AC for 6 months. Xarelto or Eliquis is ok. Please have pt follow in vascular clinic. call for appt [phone] Deric Blanton DO
[2020-05-24 21:24] LABS: INR 1.24 (0.83-1.09); PROTHROMBIN TIME (PATIENT) 15.1 SEC (9.7-13.0)
[2020-05-24 21:27] LABS: ACTIVATED PTT 41.5 SECONDS (25.2-36.5)
[2020-05-25] MEDS: HEPARIN - 25,000 UNIT in SODIUM CHLORIDE 495 ML IV SCH (04:58)
[2020-05-25] MEDS: ACETAMINOPHEN 325 MG TABLET (FP) PO SCH ×4 (05:02→23:05)
[2020-05-25] MEDS: morphine SULFATE 4 MG/ML VIAL IVPUSH PRN (05:02)
--- NOTE | 2020-05-25 05:08 | PN ---
Progress Note (short form) - Note Progress Note: Called to assess patient for 6/10 chest pain. Notes central chest discomfort, started a few hours ago, worse with deep breaths initially but has improved since then. Also complaining of 10/10 left thigh pain which is more bothersome than the chest, and a mild headache. Denies palpitations, shortness of breath, cough. Admitted with extensive LLE DVT, currently on heparin gtt. Last Vital Signs Temp Pulse Resp BP Pulse Ox 98.7 F 85 18 103/61 98 05/24/20 21:00 05/25/20 04:38 05/25/20 04:38 05/25/20 04:38 05/25/20 04:38 EXAM awake, alert, NAD RRR, no MRG lungs CTAB, unlabored Left thigh swelling and tenderness but soft A/P: New pleuritic chest pain in setting of known LLE DVT, has been on anticoagulation for over 24h at this point. Possibly secondary to PE, however given patient is already on heparin gtt will defer CTA pending EKG and labs. Chest discomfort improved after receiving morphine. Advised patient to notify us for any worsening symptoms. - EKG - NSR, rate 80s-low 90s - labs pending Visit type - Emergency Visit Emergency Visit: Yes ED Registration Date: 05/23/20 Care time: The patient presented to the Emergency Department on the above date and was hospitalized for further evaluation of their emergent condition. - New Patient This patient is new to me today: Yes Date on this admission: 05/25/20 - Critical Care Critical Care patient: No
--- NOTE | 2020-05-25 05:52 | CON.OBG ---
Consult Consult Specialty:: gynecology Referred by:: A Reason for Consultation:: admission for DVT SP abdominal myomectomy - History of Present Illness Chief Complaint: Admission of DVTs. Left leg swelling on admission. Hx of Abominal myomectomy on History of Present Illness: 44 yo G P hx of abdominal myomectomy on 05/09 sp heparin after surgery and DC home in 2 days. Pt presented with left leg pain with heaviness, no sob, states left leg mild swelling tachy, - homans sign, leg slightly darker and larger than right. Pt present still with left leg pain but much improved - History Source History Provided By: Patient Limitations to Obtaining History: No Limitations - Past Medical History ...LMP: 05/20/20 ...: No - Past Surgical History Additional Surgical History: abdominal myomectomy - Alcohol/Substance Use Hx Alcohol Use: No History of Substance Use: reports: None - Smoking History Smoking history: Never smoked Home Medications - Allergies Allergies/Adverse Reactions: Allergies Allergy/AdvReac Type Severity Reaction Status Date / Time pollen extracts Allergy Verified 05/23/20 14:59 - Home Medications Home Medications: Ambulatory Orders NK [No Known Home Medication] 05/23/20 Physical Exam-COGNOS ADMINISTRATOR Vital Signs: Vital Signs Temperature 98.7 F 05/24/20 21:00 Pulse Rate 85 05/25/20 04:38 Respiratory Rate 18 05/25/20 04:38 Blood Pressure 103/61 05/25/20 04:38 O2 Sat by Pulse Oximetry (%) 98 05/25/20 04:38 Constitutional: Yes: Well Nourished, No Distress Gastrointestinal: Yes: WNL, Soft Musculoskeletal: Yes: Other (Left leg swelling and tenderness) Wound/Incision: Yes: Open to air Labs: CBC, BMP 05/24/20 06:37 05/24/20 10:35 Problem List - Problems (1) S/P myomectomy Code(s): Z98.890 - OTHER SPECIFIED POSTPROCEDURAL STATES (2) DVT (deep venous thrombosis) Code(s): I82.409 - ACUTE EMBOLISM AND THOMBOS UNSP DEEP VN UNSP LOWER EXTREMITY Qualifiers: DVT location: lower extremity Affected thrombotic vein of extremity: femoral Chronicity: acute Laterality: left Qualified Code(s): I82.412 - Acute embolism and thrombosis of left femoral vein (3) Left leg pain Code(s): M79.605 - PAIN IN LEFT LEG Assessment/Plan SP DVT SP MYomectomy Pt feeling better since admission pt still with left pain COGNOS ADMINISTRATOR cleared Plan Possible DC home as per medicine will follow
[2020-05-25 06:40] LABS: HEMATOCRIT 32.5 % (32.4-45.2); HEMOGLOBIN 10.6 GM/dL (10.7-15.3); MCH 27.1 pg (25.7-33.7); MCHC 32.4 g/dl (32.0-36.0); MEAN CELL VOLUME 83.7 fl (80-96); MEAN PLT VOLUME 9.9 fl (7.5-11.1); PLATELET COUNT 226 K/MM3 (134-434); RBC 3.89 M/mm3 (3.60-5.2); RDW 14.8 % (11.6-15.6); WHITE BLOOD COUNT 10.6 K/mm3 (4.0-10.0)
[2020-05-25 06:55] LABS: CHLORIDE 103 mmol/L (98-107); POTASSIUM 4.2 mmol/L (3.5-5.1); SODIUM 137 mmol/L (136-145)
[2020-05-25 07:01] LABS: ALBUMIN 3.2 g/dl (3.4-5.0); ANION GAP 7 MMOL/L (8-16); BLOOD UREA NITROGEN 9.4 mg/dL (7-18); CALCIUM 8.7 mg/dL (8.5-10.1); CO2 27 mmol/L (21-32)
[2020-05-25 07:04] LABS: CREATININE 0.6 mg/dL (0.55-1.3); SGOT/AST 15 U/L (15-37); SGPT/ALT 14 U/L (13-61)
[2020-05-25 07:06] LABS: BILIRUBIN,TOTAL 0.5 mg/dL (0.2-1)
[2020-05-25 07:08] LABS: ALK PHOS 63 U/L (45-117)
[2020-05-25 07:38] LABS: GLUCOSE,RANDOM 89 mg/dL (74-106)
--- NOTE | 2020-05-25 09:05 | PN ---
Progress Note, Physician History of Present Illness: 44 yo F with PMH of fibroids (s/p open abdominal myomectomy on 05/09/2020) presenting with L leg pain, swelling, heaviness, and mild discoloration x 2 days (since Saturday morning); found to have extensive deep venous thrombosis of LLE (common, deep, and superficial femoral veins). Pt being admitted for further evaluation and management of the extensive LLE DVT. chest pain last night and this am - Current Medication List Current Medications: Active Medications Acetaminophen (Tylenol -) 650 mg PO Q6HPO TOBY Last Admin: 05/25/20 05:02 Dose: 650 mg Documented by: Heparin Sodium (Porcine) (Heparin -) 1,000 unit IVPUSH PRN PRN PRN Reason: Heparin Last Admin: 05/25/20 07:53 Dose: 1,000 unit Documented by: Heparin Sodium (Porcine) (Heparin -) 5,000 unit IVPUSH PRN PRN PRN Reason: Heparin Last Admin: 05/23/20 23:22 Dose: 5,000 unit Documented by: Heparin Sodium (Porcine) 25, (000 unit/ Sodium Chloride) 500 mls @ 20 mls/hr IV TITR TOBY; Protocol Last Admin: 05/25/20 04:58 Dose: 950 unit/hr, 19 mls/hr Documented by: Morphine Sulfate (Morphine Sulfate) 4 mg IVPUSH Q4H PRN PRN Reason: PAIN LEVEL 7 - 10 Last Admin: 05/25/20 05:02 Dose: 4 mg Documented by: - Objective Vital Signs: Vital Signs Temperature 99.3 F 05/25/20 06:00 Pulse Rate 86 05/25/20 06:00 Respiratory Rate 18 05/25/20 06:00 Blood Pressure 111/64 05/25/20 06:00 O2 Sat by Pulse Oximetry (%) 96 05/25/20 06:00 Cardiovascular: Yes: Regular Rate and Rhythm Respiratory: Yes: Regular, CTA Bilaterally Gastrointestinal: Yes: Normal Bowel Sounds, Soft. No: Tenderness Labs: CBC, BMP 05/25/20 05:29 05/25/20 05:29 INR, PTT INR 1.24 (0.83-1.09) H 05/24/20 20:15 Problem List - Problems (1) DVT (deep venous thrombosis) Assessment/Plan: -(common, deep, and superficial femoral veins) Xarelto given in ED VS stable currently Vascular Surgery -Continue with heparin drip -PO tylenol scheduled; PO morphine prn for breakthrough pain -neurochecks for changes in LLE exam -Hem consult Code(s): I82.409 - ACUTE EMBOLISM AND THOMBOS UNSP DEEP VN UNSP LOWER EXTREMITY Qualifiers: DVT location: lower extremity Affected thrombotic vein of extremity: femoral Chronicity: acute Laterality: left Qualified Code(s): I82.412 - Acute embolism and thrombosis of left femoral vein (2) S/P myomectomy Assessment/Plan: vice chair follow up Code(s): Z98.890 - OTHER SPECIFIED POSTPROCEDURAL STATES (3) Chest pain Assessment/Plan: r/o pe cta pulm consult on heparin Code(s): R07.9 - CHEST PAIN, UNSPECIFIED
[2020-05-25] MEDS ORDERED: CEFTRIAXONE 1 GM in DEXTROSE 5%-WATER - 50 ML IVPB SCH (10:00)
[2020-05-25] MEDS ORDERED: cefTRIAXone SODIUM 1 GM VIAL ONE (10:10)
[2020-05-25] MEDS ORDERED: DEXTROSE 5%-WATER - 50 ML IVPB ONE (10:10)
--- NOTE | 2020-05-25 12:06 | CON.ID ---
Consult Consult Specialty:: infectious disease Referred by:: dr kowalski Reason for Consultation:: possible UTI - History of Present Illness Chief Complaint: pain and swelling LLE History of Present Illness: 44 yo female s/p admission 05/09 to 05/11 for abdominal myomectomy- did well postop went homme, seen postop by gyne doing well no travel, ambulating at home developed pain left leg and swelling and came to ED and was found to have a DVT no family history of such no fevers no sob no dysuria otherwise feels well has pain and swelling of the leg - History Source History Provided By: Patient Limitations to Obtaining History: No Limitations - Past Medical History ...LMP: 05/20/20 ...: No - Past Surgical History Past Surgical History: Yes: (in [facility]- ) Additional Surgical History: abdominal myomectomy - Alcohol/Substance Use Hx Alcohol Use: No History of Substance Use: reports: None - Smoking History Smoking history: Never smoked - Social History Usual Living Arrangement: With Spouse ADL: Independent Occupation: lives with daughter and Place of : Other History of Recent Travel: No Home Medications - Allergies Allergies/Adverse Reactions: Allergies Allergy/AdvReac Type Severity Reaction Status Date / Time pollen extracts Allergy Verified 05/23/20 14:59 - Home Medications Home Medications: Ambulatory Orders NK [No Known Home Medication] 05/23/20 Family Medical History Other Family History: son 5 years ago from accident Review of Systems - Review of Systems Constitutional: denies: Chills, Fever Eyes: reports: No Symptoms HENT: reports: No Symptoms Neck: reports: No Symptoms Cardiovascular: reports: No Symptoms. denies: Chest Pain Respiratory: denies: Cough Gastrointestinal: denies: Abdominal Pain Genitourinary: denies: Burning, Discharge, Dysuria, Flank Pain, Frequency, Hematuria, Incontinence Physical Exam Vital Signs: Vital Signs Temperature 98.4 F 05/25/20 10:00 Pulse Rate 85 05/25/20 10:00 Respiratory Rate 19 05/25/20 10:00 Blood Pressure 99/61 05/25/20 10:00 O2 Sat by Pulse Oximetry (%) 98 05/25/20 10:00 Constitutional: Yes: Well Nourished, No Distress, Calm Eyes: Yes: Conjunctiva Clear HENT: Yes: Atraumatic, Normocephalic. No: Thrush Neck: Yes: Supple, Trachea Midline Cardiovascular: Yes: Regular Rate and Rhythm Respiratory: Yes: Regular, CTA Bilaterally Gastrointestinal: Yes: Normal Bowel Sounds, Other (abdominal wound is clean and dry). No: Tenderness, Epigastrium ...Rectal Exam: Yes: Deferred Renal/: No: Bladder Distention, CVA Tenderness - Left, CVA Tenderness - Right Edema: Yes Edema: LLE: 2+ Labs: CBC, BMP 05/25/20 05:29 05/25/20 05:29 Microbiology 05/23/20 15:36 Urine - Urine Clean Catch Urine Culture - Preliminary Lactose Fermenting Neg Bacilli Imaging - Results Chest X-ray: Report Reviewed Cat Scan: Report Reviewed Ultrasound: Report Reviewed Problem List - Problems (1) DVT (deep venous thrombosis) Code(s): I82.409 - ACUTE EMBOLISM AND THOMBOS UNSP DEEP VN UNSP LOWER EXTREMITY Qualifiers: DVT location: lower extremity Affected thrombotic vein of extremity: femoral Chronicity: acute Laterality: left Qualified Code(s): I82.412 - Acute embolism and thrombosis of left femoral vein (2) S/P myomectomy Code(s): Z98.890 - OTHER SPECIFIED POSTPROCEDURAL STATES (3) Asymptomatic bacteriuria Code(s): R82.71 - BACTERIURIA Assessment/Plan management of dvt per hematology no need to treat for UTI ua c/w contammination- she is asymptomatic
--- NOTE | 2020-05-25 12:51 | CON.PULM ---
Consult Consult Specialty:: PULM/CCM Referred by:: Hospitalist Reason for Consultation:: DVT / PE - History of Present Illness Chief Complaint: CP History of Present Illness: 44 F, fibroids, S/P open abdominal myomectomy on 05/09/2020, and iron deficiency anemia. Admitted due to Left leg pain, swelling, and and discoloration x 2 days. Found to LLE DVT. Patient reported CP early this AM. CTA: no PE or acute process. She is currently comfortable on RA. - History Source History Provided By: Patient Limitations to Obtaining History: No Limitations - Past Medical History ...LMP: 05/20/20 ...: No - Past Surgical History Additional Surgical History: abdominal myomectomy - Alcohol/Substance Use Hx Alcohol Use: No History of Substance Use: reports: None - Smoking History Smoking history: Never smoked Home Medications - Allergies Allergies/Adverse Reactions: Allergies Allergy/AdvReac Type Severity Reaction Status Date / Time pollen extracts Allergy Verified 05/23/20 14:59 - Home Medications Home Medications: Ambulatory Orders NK [No Known Home Medication] 05/23/20 Review of Systems - Review of Systems Constitutional: denies: Chills, Fever, Malaise, Night Sweats, Unintentional Wgt. Loss Eyes: reports: No Symptoms HENT: reports: No Symptoms Neck: reports: No Symptoms Cardiovascular: reports: Chest Pain. denies: Edema, Palpitations, Shortness of Breath Respiratory: denies: Cough, Exercise Intolerance, Hemoptysis, Orthopnea, PND, Snoring, SOB, SOB on Exertion, Wheezing Gastrointestinal: reports: No Symptoms Genitourinary: reports: No Symptoms Breasts: reports: No Symptoms Reported Musculoskeletal: reports: Extremity Pain, Joint Swelling, Muscle Cramps Integumentary: reports: Change in Color Neurological: reports: No Symptoms Endocrine: reports: No Symptoms Hematology/Lymphatic: reports: No Symptoms Psychiatric: reports: No Symptoms Physical Exam Vital Sings: Vital Signs Temperature 98.4 F 05/25/20 10:00 Pulse Rate 85 05/25/20 10:00 Respiratory Rate 19 05/25/20 10:00 Blood Pressure 99/61 05/25/20 10:00 O2 Sat by Pulse Oximetry (%) 98 05/25/20 10:00 Constitutional: Yes: No Distress, Calm, Obese Eyes: Yes: Conjunctiva Clear, EOM Intact HENT: Yes: Atraumatic, Normocephalic Neck: Yes: Supple, Trachea Midline Cardiovascular: Yes: Regular Rate and Rhythm Respiratory: Yes: CTA Bilaterally. No: Accessory Muscle Use, Rales, Rhonchi, SOB, SOB on Exertion, Stridor, Tachypnea, Wheezes ...Inspection: Yes: WNL ...Clubbing: No Gastrointestinal: Yes: Normal Bowel Sounds, Soft, Abdomen, Obese Renal/: Yes: WNL Musculoskeletal: Yes: Joint Swelling Extremities: Yes: Calf Tenderness Edema: Yes Peripheral Pulses WNL: Yes Integumentary: Yes: Erythema Neurological: Yes: WNL, Alert, Oriented ...Motor Strength: WNL Psychiatric: Yes: WNL, Alert, Oriented Labs: CBC, BMP 05/25/20 05:29 05/25/20 05:29 Imaging - Results Cat Scan: Report Reviewed, Image Reviewed Problem List - Problems (1) Chest pain Code(s): R07.9 - CHEST PAIN, UNSPECIFIED (2) S/P myomectomy Code(s): Z98.890 - OTHER SPECIFIED POSTPROCEDURAL STATES (3) DVT (deep venous thrombosis) Code(s): I82.409 - ACUTE EMBOLISM AND THOMBOS UNSP DEEP VN UNSP LOWER EXTREMITY Qualifiers: DVT location: lower extremity Affected thrombotic vein of extremity: femoral Chronicity: acute Laterality: left Qualified Code(s): I82.412 - Acute embolism and thrombosis of left femoral vein (4) Left leg pain Code(s): M79.605 - PAIN IN LEFT LEG Assessment/Plan IMP: Provoked LLE DVT PLAN: DOAC 3 to 6 months Outpatient hypercoaguable workup No smoking There is no Pulmonary contraindication for DC Thank you. Dr Eng
[2020-05-25] MEDS ORDERED: DOCUSATE SODIUM 100 MG CAPSULE (FP) PO PRN (13:49)
[2020-05-25] MEDS: oxyCODONE HCL 5 MG TABLET PO PRN ×2 (14:01→20:52)
[2020-05-25 14:45] LABS: ANISOCYTOSIS 1+; MACROCYTOSIS 0; PLATELET ESTIMATE NORMAL
--- NOTE | 2020-05-25 15:14 | EKG ---
Test Reason : Blood Pressure : / mmHG Vent. Rate : 089 BPM Atrial Rate : 089 BPM P-R Int : 148 ms QRS Dur : 084 ms QT Int : 354 ms P-R-T Axes : 054 048 029 degrees QTc Int : 430 ms NORMAL SINUS RHYTHM NORMAL ECG WHEN COMPARED WITH ECG OF 23-MAY-2020 15:29, T WAVE INVERSION NO LONGER EVIDENT IN ANTERIOR LEADS Confirmed by MD RAO, LITO ([id number]) on 05/25/2020 3:13:43 PM Referred By: Confirmed By:LITO YEH MD
[2020-05-25] MEDS: APIXABAN 5 MG TABLET PO SCH (17:03)
[2020-05-26] MEDS: oxyCODONE HCL 5 MG TABLET PO PRN ×3 (02:53→16:45)
[2020-05-26] MEDS: APIXABAN 5 MG TABLET PO SCH ×2 (05:32→17:31)
[2020-05-26] MEDS: ACETAMINOPHEN 325 MG TABLET (FP) PO SCH ×3 (05:32→17:32)
[2020-05-26 06:27] LABS: BASO % 0.4 % (0-2.0); EOS % 2.5 % (0-4.5); HEMATOCRIT 34.5 % (32.4-45.2); HEMOGLOBIN 11.2 GM/dL (10.7-15.3); LYMPH % 25.8 % (8-40); MCH 27.3 pg (25.7-33.7); MCHC 32.4 g/dl (32.0-36.0); MEAN CELL VOLUME 84.2 fl (80-96); MONO % 9.5 % (3.8-10.2); NEUT % 61.8 % (42.8-82.8); PLATELET COUNT 267 K/MM3 (134-434); RDW 14.5 % (11.6-15.6); WHITE BLOOD COUNT 8.4 K/mm3 (4.0-10.0)
[2020-05-26 06:37] LABS: POTASSIUM 3.7 mmol/L (3.5-5.1)
[2020-05-26 06:42] LABS: CALCIUM 9.4 mg/dL (8.5-10.1)
[2020-05-26 06:44] LABS: ALBUMIN 3.4 g/dl (3.4-5.0); BLOOD UREA NITROGEN 10.9 mg/dL (7-18)
[2020-05-26 06:46] LABS: CREATININE 0.6 mg/dL (0.55-1.3)
[2020-05-26 06:47] LABS: BILIRUBIN,TOTAL 0.9 mg/dL (0.2-1); TOT PROT 7.5 g/dl (6.4-8.2)
--- NOTE | 2020-05-26 09:23 | PN ---
Progress Note (SOAP) - Subjective Chief Complaint: Pt doing better still with leg pain no chest pain or Sob - Current Medications Current Medications: Active Medications Acetaminophen (Tylenol -) 650 mg PO Q6HPO [facility] Last Admin: 05/26/20 05:32 Dose: 650 mg Documented by: Apixaban (Eliquis -) 10 mg PO BID@0600,1800 [facility] Last Admin: 05/26/20 05:32 Dose: 10 mg Documented by: Docusate Sodium (Colace -) 100 mg PO BID PRN PRN Reason: CONSTIPATION Oxycodone HCl (Roxicodone -) 5 mg PO Q6H PRN PRN Reason: PAIN LEVEL 6-10 Last Admin: 05/26/20 02:53 Dose: 5 mg Documented by: - Objective Vital Signs: Vital Signs Temperature 98.8 F 05/26/20 06:00 Pulse Rate 88 05/26/20 06:00 Respiratory Rate 18 05/26/20 06:00 Blood Pressure 105/64 05/26/20 06:00 O2 Sat by Pulse Oximetry (%) 98 05/26/20 06:00 Constitutional: Yes: Well Nourished, No Distress Gastrointestinal: Yes: WNL, Soft, Abdomen, Obese Musculoskeletal: Yes: Other (left leg swelling and tenderness) Labs Lab Results: CBCD WBC 8.4 K/mm3 (4.0-10.0) 05/26/20 05:51 RBC 4.10 M/mm3 (3.60-5.2) 05/26/20 05:51 Hgb 11.2 GM/dL (10.7-15.3) 05/26/20 05:51 Hct 34.5 % (32.4-45.2) 05/26/20 05:51 MCV 84.2 fl (80-96) 05/26/20 05:51 MCHC 32.4 g/dl (32.0-36.0) 05/26/20 05:51 RDW 14.5 % (11.6-15.6) 05/26/20 05:51 Plt Count 267 K/MM3 (134-434) 05/26/20 05:51 MPV 9.0 fl (7.5-11.1) 05/26/20 05:51 CMP Sodium 135 mmol/L (136-145) L 05/26/20 05:51 Potassium 3.7 mmol/L (3.5-5.1) 05/26/20 05:51 Chloride 99 mmol/L (98-107) 05/26/20 05:51 Carbon Dioxide 27 mmol/L (21-32) 05/26/20 05:51 Anion Gap 9 MMOL/L (8-16) 05/26/20 05:51 BUN 10.9 mg/dL (7-18) 05/26/20 05:51 Creatinine 0.6 mg/dL (0.55-1.3) 05/26/20 05:51 Random Glucose 88 mg/dL (74-106) 05/26/20 05:51 Calcium 9.4 mg/dL (8.5-10.1) 05/26/20 05:51 Total Bilirubin 0.9 mg/dL (0.2-1) 05/26/20 05:51 AST 27 U/L (15-37) 05/26/20 05:51 ALT 26 U/L (13-61) 05/26/20 05:51 Alkaline Phosphatase 70 U/L (45-117) 05/26/20 05:51 Total Protein 7.5 g/dl (6.4-8.2) 05/26/20 05:51 Albumin 3.4 g/dl (3.4-5.0) 05/26/20 05:51 CARDIAC ENZYMES Troponin I < 0.02 ng/ml (0.00-0.05) 05/25/20 05:29 Problem List - Problems (1) S/P myomectomy Code(s): Z98.890 - OTHER SPECIFIED POSTPROCEDURAL STATES (2) DVT (deep venous thrombosis) Code(s): I82.409 - ACUTE EMBOLISM AND THOMBOS UNSP DEEP VN UNSP LOWER EXTREMITY Qualifiers: DVT location: lower extremity Affected thrombotic vein of extremity: femoral Chronicity: acute Laterality: left Qualified Code(s): I82.412 - Acute embolism and thrombosis of left femoral vein (3) Left leg pain Code(s): M79.605 - PAIN IN LEFT LEG Assessment/Plan SP DVT SP MYomectomy Pt feeling better since admission pt still with left 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
--- NOTE | 2020-05-26 11:14 | DS ---
Physical Examination Vital Signs: Vital Signs Temperature 98.8 F 05/26/20 06:00 Pulse Rate 73 05/26/20 09:58 Respiratory Rate 19 05/26/20 09:58 Blood Pressure 106/64 05/26/20 09:58 O2 Sat by Pulse Oximetry (%) 97 05/26/20 09:58 Cardiovascular: Yes: Regular Rate and Rhythm Respiratory: Yes: Regular, CTA Bilaterally Gastrointestinal: Yes: Normal Bowel Sounds, Soft Edema: Yes Labs: CBC, BMP 05/26/20 05:51 05/26/20 05:51 Discharge Summary Problems reviewed: Yes Reason For Visit: DEEP VEIN THROMBOSIS (DVT) Current Active Problems Asymptomatic bacteriuria (Acute) Chest pain (Acute) S/P myomectomy (Acute) Hospital Course: - Problems (1) DVT (deep venous thrombosis) Assessment/Plan: -(common, deep, and superficial femoral veins) Eliquis 10 bid x 7days then 5 bid VS stable currently Vascular Surgery -OFF heparin drip -PO tylenol scheduled; PO morphine prn for breakthrough pain -neurochecks for changes in LLE exam -Hem consult Code(s): I82.409 - ACUTE EMBOLISM AND THOMBOS UNSP DEEP VN UNSP LOWER EXTREMITY Qualifiers: DVT location: lower extremity Affected thrombotic vein of extremity: femoral Chronicity: acute Laterality: left Qualified Code(s): I82.412 - Acute embolism and thrombosis of left femoral vein (2) S/P myomectomy Assessment/Plan: l tacker follow up appreciated Code(s): Z98.890 - OTHER SPECIFIED POSTPROCEDURAL STATES (3) Chest pain Assessment/Plan: cta no pe pulm consult off heparin---eliquis Code(s): R07.9 - CHEST PAIN, UNSPECIFIED Condition: Fair - Instructions Diet, Activity, Other Instructions: Eliquis 5 mg 2 tablets twice a day for 6 more days then one tablet twice a day see dr august on saturday If any shortness of breath chest pain or changes to leg return to ER Referrals: Wen August MD [Primary Care Provider] - 05/30/20 Deric Blanton MD [Non Staff, Medical] - David Ha MD [Staff Physician] - - Home Medications Comprehensive Discharge Medication List: Ambulatory Orders Acetaminophen [Tylenol .Regular Strength -] 650 mg PO Q6HPO tablet 05/26/20 Apixaban [Eliquis -] 10 mg PO BID@0600,1800 #66 tablet 05/26/20 Docusate Sodium [Colace -] 100 mg PO BID PRN capsule 05/26/20
[2020-05-26 12:23] VITALS: TEMP 98.1
--- NOTE | 2020-05-26 12:23 | PN ---
Progress Note (short form) - Note Progress Note: Resting in NAD on RA. No CP or SOB. Still with discomfort in the LLE. Intake & Output 05/23/20 05/24/20 05/25/20 05/26/20 23:59 23:59 23:59 23:59 Intake Total 1000 1216 1364 200 Balance 1000 1216 1364 200 Weight 171 lb Last Vital Signs Temp Pulse Resp BP Pulse Ox 98.8 F 73 19 106/64 97 05/26/20 06:00 05/26/20 09:58 05/26/20 09:58 05/26/20 09:58 05/26/20 09:58 Active Medications Acetaminophen (Tylenol -) 650 mg PO Q6HPO [facility] Last Admin: 05/26/20 11:36 Dose: 650 mg Documented by: Apixaban (Eliquis -) 10 mg PO BID@0600,1800 [facility] Last Admin: 05/26/20 05:32 Dose: 10 mg Documented by: Docusate Sodium (Colace -) 100 mg PO BID PRN PRN Reason: CONSTIPATION Oxycodone HCl (Roxicodone -) 5 mg PO Q6H PRN PRN Reason: PAIN LEVEL 6-10 Last Admin: 05/26/20 09:35 Dose: 5 mg Documented by: Constitutional: Yes: No Distress, Calm, Obese Eyes: Yes: Conjunctiva Clear, EOM Intact HENT: Yes: Atraumatic, Normocephalic Neck: Yes: Supple, Trachea Midline Cardiovascular: Yes: Regular Rate and Rhythm Respiratory: Yes: CTA Bilaterally. No: Accessory Muscle Use, Rales, Rhonchi, SOB, SOB on Exertion, Stridor, Tachypnea, Wheezes ...Inspection: Yes: WNL ...Clubbing: No Gastrointestinal: Yes: Normal Bowel Sounds, Soft, Abdomen, Obese Renal/: Yes: WNL Musculoskeletal: Yes: Joint Swelling Extremities: Yes: Calf Tenderness Edema: Yes Peripheral Pulses WNL: Yes Integumentary: Yes: Erythema Neurological: Yes: WNL, Alert, Oriented ...Motor Strength: WNL Psychiatric: Yes: WNL, Alert, Oriented Labs: Laboratory Results - last 24 hr 05/25/20 05/25/20 05/26/20 05:29 14:27 05:51 WBC RBC Hgb Hct MCV MCH MCHC RDW Plt Count MPV Absolute Neuts (auto) Neutrophils % Neutrophils % (Manual) 80.5 Band Neutrophils % 0.0 Lymphocytes % Lymphocytes % (Manual) 12.4 Monocytes % Monocytes % (Manual) 6 Eosinophils % Eosinophils % (Manual) 0.9 Basophils % Basophils % (Manual) 0.0 Myelocytes % (Man) 0 Promyelocytes % (Man) 0 Blast Cells % (Manual) 0 Nucleated RBC % 0 Metamyelocytes 0 Hypochromia 0 Platelet Estimate Normal Polychromasia 0 Poikilocytosis 0 Anisocytosis 1+ Macrocytosis 0 PTT (Actin FS) 40.0 H 34.1 Sodium Potassium Chloride Carbon Dioxide Anion Gap BUN Creatinine Est GFR (CKD-EPI)AfAm Est GFR (CKD-EPI)NonAf Random Glucose Calcium Total Bilirubin AST ALT Alkaline Phosphatase Total Protein Albumin 05/26/20 05/26/20 05:51 05:51 WBC 8.4 RBC 4.10 Hgb 11.2 Hct 34.5 MCV 84.2 MCH 27.3 MCHC 32.4 RDW 14.5 Plt Count 267 MPV 9.0 Absolute Neuts (auto) 5.2 Neutrophils % 61.8 Neutrophils % (Manual) Band Neutrophils % Lymphocytes % 25.8 Lymphocytes % (Manual) Monocytes % 9.5 Monocytes % (Manual) Eosinophils % 2.5 Eosinophils % (Manual) Basophils % 0.4 Basophils % (Manual) Myelocytes % (Man) Promyelocytes % (Man) Blast Cells % (Manual) Nucleated RBC % 0 Metamyelocytes Hypochromia Platelet Estimate Polychromasia Poikilocytosis Anisocytosis Macrocytosis PTT (Actin FS) Sodium 135 L Potassium 3.7 Chloride 99 Carbon Dioxide 27 Anion Gap 9 BUN 10.9 Creatinine 0.6 Est GFR (CKD-EPI)AfAm 130.30 Est GFR (CKD-EPI)NonAf 112.42 Random Glucose 88 Calcium 9.4 Total Bilirubin 0.9 AST 27 ALT 26 Alkaline Phosphatase 70 Total Protein 7.5 Albumin 3.4 Imaging - Results Cat Scan: Report Reviewed, Image Reviewed Problem List - Problems (1) Chest pain Code(s): R07.9 - CHEST PAIN, UNSPECIFIED (2) S/P myomectomy Code(s): Z98.890 - OTHER SPECIFIED POSTPROCEDURAL STATES (3) DVT (deep venous thrombosis) Code(s): I82.409 - ACUTE EMBOLISM AND THOMBOS UNSP DEEP VN UNSP LOWER EXTREMITY Qualifiers: DVT location: lower extremity Affected thrombotic vein of extremity: femoral Chronicity: acute Laterality: left Qualified Code(s): I82.412 - Ac [place] embolism and thrombosis of left femoral vein (4) Left leg pain Code(s): M79.605 - PAIN IN LEFT LEG Assessment/Plan IMP: Provoked LLE DVT PLAN: DOAC 3 to 6 months Outpatient hypercoaguable workup No smoking There is no Pulmonary contraindication for DC Dr Eng Problem List - Problems (1) Chest pain Code(s): R07.9 - CHEST PAIN, UNSPECIFIED (2) S/P myomectomy Code(s): Z98.890 - OTHER SPECIFIED POSTPROCEDURAL STATES (3) DVT (deep venous thrombosis) Code(s): I82.409 - ACUTE EMBOLISM AND THOMBOS UNSP DEEP VN UNSP LOWER EXTREMITY Qualifiers: DVT location: lower extremity Affected thrombotic vein of extremity: femoral Chronicity: acute Laterality: left Qualified Code(s): I82.412 - Acute embolism and thrombosis of left femoral vein (4) Left leg pain Code(s): M79.605 - PAIN IN LEFT LEG
[2020-05-26 15:03] VITALS: BP 110/66; PULSE 88
--- NOTE | 2020-06-03 21:19 | PN ---
Teaching Attending Note Name of Resident: Drake Escalante ATTENDING PHYSICIAN STATEMENT I saw and evaluated the patient. I reviewed the resident's note and discussed the case with the resident. I agree with the resident's findings and plan as documented. SUBJECTIVE:Pt is a 44 yo F with PMH of fibroids (s/p open abdominal myomectomy on 05/09/2020) presenting with L leg pain with associated mild swelling, heaviness, and mild discoloration x 2 days (since Saturday morning). Found to have extensive DVT in LLE. Pt denies hx of clots in the past, current OCP use, periods of extended sitting/traveling (reports that she has been walking a lot since the surgery), hx of miscarriages/ loss, past DVT/PE, or fam hx of clots/easy bleeding. Pt denies any changes in sensation in her legs, numbness/tingling, changes in ability to move leg, CP, dyspnea at rest or on exertion, cough, hemoptysis, hematuria, dysuria, urinary frequency, or urgency. Pt also denies nausea/vomiting, constipation, diarrhea, dizziness/lightheadedness, or fevers/chills. OBJECTIVE: On exam she is AAOx3. RRR. CTAB. LLE no evidence of critical limb of cerulea. positive homans. Left leg is taut when compared to right leg ASSESSMENT AND PLAN: DVT likely surgery induced. Vascular consult admit to inpatient heparin gtt NOAC prior to discharge monitor pulses/ neurovascular checks rest as per residents note. Critical Care Total Critical Care Time (in minutes): 0
== END 2020-05-26 18:00 | disposition home or self-care (01) | DRG 197 ==
LOC: JER 14:42 → JERBED 19:29 → OBSVTOIN 19:29 → J7W 20:53
PROVIDERS: ADMIT Hospitalist; ATTEND Internal Medicine
DX: I82.4Z2 Acute embolism and thrombosis of unspecified deep veins of left distal lower extremity (principal); R82.71 Bacteriuria; R07.9 Chest pain, unspecified; D50.9 Iron deficiency anemia, unspecified; E66.9 Obesity, unspecified; Z68.31 Body mass index [BMI] 31.0-31.9, adult
CPT/HCPCS: 36415; 71045-TC-FY; 71275-TC; 80053; 81003; 84443; 84484; 84703; 85025; 85027; 85610; 85730; 86850; 86900; 86901; 87086; 87186; 93005; 93010; 93971-TC; 97116-GP; 97161-GP; 99285-25; C9803; J0131; J1644; Q9967; U0003